=== PATIENT | male | born 1965 | race Caucasian/White ===

== ENCOUNTER 2018-04-17 20:49 | Emergency (ER) | payer MEDICARE, OTHER ==
[2018-04-17] MEDS ORDERED: IPRATROPIUM/ALBUTEROL SULFATE 3 ML SOLUTION IH ONE (21:22)
[2018-04-17 21:27] LABS: BASOPHILS % (AUTO) 0.7 % (0.0-5.0); EOSINOPHILS % (AUTO) 0.7 % (0.0-8.0); HEMATOCRIT 44.1 % (42-54); LYMPHOCYTES % (AUTO) 29.7 % (21.0-51.0); MEAN CORPUSCULAR HEMOGLOBIN 30.7 pg (27.0-33.0); MEAN CORPUSCULAR HGB CONC 33.5 g/dL (32.0-36.0); MEAN CORPUSCULAR VOLUME 91.5 fL (79-99); MONOCYTES % (AUTO) 4.9 % (3.0-13.0); PLATELET COUNT (AUTO) 319 K/uL (130-400); RED BLOOD CELL COUNT(AUTO) 4.82 MIL/uL (4.50-6.20); RED CELL DISTRIBUTION WIDTH 14.4 % (11.0-15.5); WHITE BLOOD COUNT (AUTO) 9.3 K/uL (4.8-10.8)
[2018-04-17 21:40] LABS: CREATININE 1.1 mg/dL (0.5-1.5); POTASSIUM 3.7 mmol/L (3.5-5.1)
[2018-04-17 21:42] LABS: INR 0.98 (0.85-1.15); PARTIAL THROMBOPLASTIN TIME 26.1 SEC (26.3-35.5); PROTHROMBIN TIME 10.3 SEC (9.6-11.6)
[2018-04-17 21:45] LABS: ALBUMIN 3.6 g/dL (3.5-5.0); BILIRUBIN,TOTAL 0.2 mg/dL (0.2-1.0); TOTAL PROTEIN, SERUM 7.5 g/dL (6.0-8.3)
[2018-04-17] MEDS ORDERED: KETOROLAC TROMETHAMINE 30MG/ML ONE (22:05)
== END 2018-04-17 22:47 | disposition home or self-care (01) ==
LOC: EDH 20:49
DX: B34.9 Viral infection, unspecified (principal); M41.9 Scoliosis, unspecified; T78.40XA Allergy, unspecified, initial encounter; I25.2 Old myocardial infarction; I50.9 Heart failure, unspecified; E78.5 Hyperlipidemia, unspecified; I25.10 Atherosclerotic heart disease of native coronary artery without angina pectoris; F31.9 Bipolar disorder, unspecified; Z72.0 Tobacco use; X58.XXXA Exposure to other specified factors, initial encounter
CPT/HCPCS: 36415; 71045; 80053; 82550; 84484; 85025; 85610; 85730; 93005; 94640; 96372; 99285; J1885

== ENCOUNTER → 2021-02-16 | Outpatient (CLI) | payer MEDICARE | END | disposition home or self-care (01) | LOC: SHCH 14:05 | PROVIDERS: ATTEND Internal Medicine Cardiovascular Disease | DX: I34.0 Nonrheumatic mitral (valve) insufficiency (principal); I50.22 Chronic systolic (congestive) heart failure | CPT/HCPCS: 93306; 93356 ==

== ENCOUNTER 2022-03-01 09:52 | Observation (INO) | payer OTHER ==
[2022-02-26 12:28] LABS: BASOPHILS % (AUTO) 0.7 % (0.0-5.0); EOSINOPHILS % (AUTO) 6.3 % (0.0-8.0); HEMATOCRIT 38.3 % (42-54); LYMPHOCYTES % (AUTO) 26.8 % (21.0-51.0); MEAN CORPUSCULAR HEMOGLOBIN 29.6 pg (27.0-33.0); MEAN CORPUSCULAR HGB CONC 32.6 g/dL (32.0-36.0); MEAN CORPUSCULAR VOLUME 90.8 fL (79-99); MONOCYTES % (AUTO) 8.4 % (3.0-13.0); NEUTROPHILS % (AUTO) 57.5 % (40.0-77.0); PLATELET COUNT (AUTO) 468 K/uL (130-400); RED BLOOD CELL COUNT(AUTO) 4.22 MIL/uL (4.50-6.20); RED CELL DISTRIBUTION WIDTH 14.4 % (11.0-15.5); WHITE BLOOD COUNT (AUTO) 9.1 K/uL (4.8-10.8)
[2022-02-26 12:42] LABS: INR 0.93 (0.85-1.15)
[2022-02-26 12:44] LABS: PARTIAL THROMBOPLASTIN TIME 26.2 SEC (26.3-35.5)
[2022-02-26 12:48] LABS: ALBUMIN 3.5 g/dL (3.5-5.0); POTASSIUM 4.2 mmol/L (3.5-5.1); TOTAL PROTEIN, SERUM 7.5 g/dL (6.0-8.3)
[2022-02-28 09:04] VITALS: BP 119/57
[~2022-03-01] VITALS: Ht 167.6 cm; Wt 43.9 kg
[~2022-03-01 09:52] MED LIST: BACL10TA PO; CALC-1125 PO; CEFAZOLIN SODIUM 1 GM VIAL IVP SCH; ESCI-8 PO; FENT-77 TD; FURO40TA5 PO; GABA600T10 PO; ISOS30TA92 PO; LORA0.5T83 PO; MORP30TA71 PO; MVIT PO; OMEG-148 PO
[2022-03-01 10:16] VITALS: BP 100/57
[2022-03-01] MEDS ORDERED: LIDOCAINE HCL 1% 20 ML VIAL ONE (12:20)
[2022-03-01] MEDS ORDERED: LIDOCAINE HCL 1% 10 ML VIAL ONE (12:21)
[2022-03-01] MEDS ORDERED: MEPERIDINE-PF 25 MG/ML SYG ONE (12:21)
[2022-03-01] MEDS ORDERED: MIDAZOLAM HCL 1 MG/ML 2ML VIAL ONE ×10 (12:21→15:35)
[2022-03-01] MEDS ORDERED: BUPIVACAINE/PF 0.25% 30ML VIAL IJ ONE (12:21)
[2022-03-01] MEDS ORDERED: MEPERIDINE-PF 50 MG/ML SYG ONE ×5 (13:26→15:33)
[2022-03-01] MEDS ORDERED: DiphenhydrAMINE HCL 50 MG/ML VIAL ONE (13:29)
[2022-03-01] MEDS ORDERED: IOHEXOL-350 50ML VIAL IV ONE (14:56)
[2022-03-01] MEDS ORDERED: BACITRACIN 1 EACH PACKET TP ONE (15:40)
[2022-03-01] MEDS ORDERED: ACETAMINOPHEN WITH CODEINE 1 TAB TAB PO PRN (16:30)
[2022-03-01] MEDS ORDERED: LORAZEPAM 0.5 MG TABLET PO PRN ×2 (16:30→20:00)
[2022-03-01] MEDS ORDERED: NON-FORMULARY MEDICATION 1 EACH (Fentanyl 1 EACH) TD SCH (16:30)
[2022-03-01] MEDS ORDERED: PHARMACY COMMUNICATION MISC SCH (17:00)
[2022-03-01] MEDS ORDERED: MORPHINE 15MG IR TAB PO PRN (17:00)
[2022-03-01 18:39] VITALS: BP 136/75
[2022-03-01 19:55] VITALS: BP 130/69
[2022-03-01] MEDS: GABAPENTIN 300 MG CAPSULE PO SCH ×2 (20:41→20:50)
[2022-03-01] MEDS: BACLOFEN 10 MG TABLET PO SCH ×2 (20:42→20:50)
[2022-03-01] MEDS ORDERED: FENTANYL 100 MCG/HR PATCH TD SCH (21:00)
[2022-03-01] MEDS ORDERED: NON-FORMULARY MEDICATION 1 EACH (Gabapentin 600 MG) PO SCH (21:00)
[2022-03-02 00:16] VITALS: BP 113/69
[2022-03-02 04:00] VITALS: BP 108/60
[2022-03-02 07:36] VITALS: BP 130/62
[2022-03-02] MEDS: BACLOFEN 10 MG TABLET PO SCH (09:00)
[2022-03-02] MEDS ORDERED: ISOSORBIDE MONO 30MG SR TAB PO SCH (09:00)
[2022-03-02] MEDS ORDERED: CALCIUM CARB 500MG PO SCH (09:00)
[2022-03-02] MEDS ORDERED: Escitalopram Oxalate 10 MG PO SCH (09:00)
[2022-03-02] MEDS ORDERED: FENTANYL 100 MCG/HR PATCH TD SCH (09:00)
[2022-03-02] MEDS ORDERED: FUROSEMIDE 40 MG TABLET PO SCH (09:00)
[2022-03-02] MEDS: GABAPENTIN 300 MG CAPSULE PO SCH (09:00)
[2022-03-02] MEDS ORDERED: MULTIVITAMIN TABLET PO SCH (09:00)
[2022-03-02] MEDS ORDERED: FISH OIL 1000 MG/CAP PO SCH (09:00)
== END 2022-03-02 12:30 | disposition home or self-care (01) ==
LOC: DAH 09:52 → DAHIP 09:53 → 2DH 16:37
PROVIDERS: ADMIT Internal Medicine; ATTEND Internal Medicine
DX: I25.5 Ischemic cardiomyopathy (principal); Z20.822 Contact with and (suspected) exposure to COVID-19; Z45.02 Encounter for adjustment and management of automatic implantable cardiac defibrillator; I11.0 Hypertensive heart disease with heart failure; I50.22 Chronic systolic (congestive) heart failure; I25.10 Atherosclerotic heart disease of native coronary artery without angina pectoris; F31.9 Bipolar disorder, unspecified; G89.4 Chronic pain syndrome; Z79.899 Other long term (current) drug therapy; Z98.890 Other specified postprocedural states; Z95.810 Presence of automatic (implantable) cardiac defibrillator; Z95.1 Presence of aortocoronary bypass graft; Z91.19 Patient's noncompliance with other medical treatment and regimen
CPT/HCPCS: 80053; 85025; 85610; 85730; 87426; 36415; 93640; 33249; 82948; 93005; 71045; C1769; C1721; C1895; G0378 ×20; J1200; J0690; J3490 ×2; J2250 ×10; J2175 ×6; Q9967; 99156; 99157

== ENCOUNTER 2022-07-30 17:03 | Emergency (ER) | payer MEDICARE, OTHER ==
[~2022-07-30] VITALS: Ht 167.6 cm; Wt 38.6 kg
[~2022-07-30 17:03] MED LIST changes: -CEFAZOLIN SODIUM 1 GM VIAL IVP SCH
[2022-07-30] MEDS ORDERED: ONDA4TAB10 PO (18:48)
[2022-07-30] MEDS ORDERED: MORPHINE 5 MG/ML VIAL (5MG OR GREATER DOSE) IM ONE (19:00)
[2022-07-30] MEDS ORDERED: ONDANSETRON ODT 4MG TAB SL ONE (19:00)
[2022-07-30 19:05] VITALS: BP 132/71
== END 2022-07-30 19:15 | disposition home or self-care (01) ==
LOC: EDH 17:03
DX: G89.29 Other chronic pain (principal); M54.50 Low back pain, unspecified; Z20.822 Contact with and (suspected) exposure to COVID-19; I10 Essential (primary) hypertension; Z79.899 Other long term (current) drug therapy
CPT/HCPCS: 99283; 87635; 87804 ×2; 96372; C9803; J2270

== ENCOUNTER 2022-08-27 03:23 | Emergency (ER) | payer OTHER ==
[~2022-08-27] VITALS: Ht 167.6 cm; Wt 45.4 kg
[~2022-08-27 03:23] MED LIST changes: +ONDA4TAB10 PO
[2022-08-27] MEDS ORDERED: MORPHINE 15MG SR TAB PO ONE (06:00)
[2022-08-27 06:11] LABS: BASOPHILS % (AUTO) 0.4 % (0.0-5.0); EOSINOPHILS % (AUTO) 0.9 % (0.0-8.0); HEMATOCRIT 41.3 % (42-54); LYMPHOCYTES % (AUTO) 24.6 % (21.0-51.0); MEAN CORPUSCULAR HEMOGLOBIN 29.5 pg (27.0-33.0); MEAN CORPUSCULAR HGB CONC 34.1 g/dL (32.0-36.0); MEAN CORPUSCULAR VOLUME 86.4 fL (79-99); MONOCYTES % (AUTO) 9.2 % (3.0-13.0); NEUTROPHILS % (AUTO) 64.5 % (40.0-77.0); PLATELET COUNT (AUTO) 438 K/uL (130-400); RED BLOOD CELL COUNT(AUTO) 4.78 MIL/uL (4.50-6.20); RED CELL DISTRIBUTION WIDTH 13.3 % (11.0-15.5); WHITE BLOOD COUNT (AUTO) 10.9 K/uL (4.8-10.8)
[2022-08-27 06:21] LABS: AMPHET/METH SCREEN,URINE NEGATIVE (NEGATIVE); BARBITURATE SCREEN, URINE NEGATIVE (NEGATIVE); BENZODIAZEPINES SCREEN,URINE NEGATIVE (NEGATIVE); CANNABINOID SCREEN,URINE POSITIVE (NEGATIVE); COCAINE SCREEN,URINE NEGATIVE (NEGATIVE); OPIATE SCREEN,URINE POSITIVE (NEGATIVE); PHENCYCLIDINE SCREEN,URINE NEGATIVE (NEGATIVE)
[2022-08-27 06:28] LABS: ALBUMIN 3.4 g/dL (3.5-5.0); POTASSIUM 3.5 mmol/L (3.5-5.1); TOTAL PROTEIN, SERUM 7.3 g/dL (6.0-8.3)
[2022-08-27 07:01] VITALS: BP 113/56
== END 2022-08-27 07:03 | disposition home or self-care (01) ==
LOC: EDH 03:23
DX: G89.29 Other chronic pain (principal); M54.9 Dorsalgia, unspecified; I10 Essential (primary) hypertension; Z79.899 Other long term (current) drug therapy; Z95.810 Presence of automatic (implantable) cardiac defibrillator
CPT/HCPCS: 36415; 80053; 80305; 85025

== ENCOUNTER → 2023-05-26 | Outpatient (CLI) | payer OTHER | END | disposition home or self-care (01) | LOC: SHCH 15:01 | PROVIDERS: ATTEND Internal Medicine Cardiovascular Disease | DX: I25.5 Ischemic cardiomyopathy (principal) | CPT/HCPCS: 93306 ==

== ENCOUNTER 2023-08-26 10:59 | Emergency (ER) | payer OTHER | END 2023-08-26 12:07 | disposition left against medical advice (07) | LOC: EDH 10:59 | DX: M54.50 Low back pain, unspecified (principal); M54.2 Cervicalgia; Z53.21 Procedure and treatment not carried out due to patient leaving prior to being seen by health care provider ==

== ENCOUNTER 2023-08-28 10:17 | Emergency (ER) | payer OTHER | END 2023-08-28 13:31 | disposition left against medical advice (07) | LOC: EDH 10:17 | DX: Z04.1 Encounter for examination and observation following transport accident (principal); Z53.21 Procedure and treatment not carried out due to patient leaving prior to being seen by health care provider ==

== ENCOUNTER 2023-09-05 05:16 | Emergency (ER) | payer OTHER ==
[~2023-09-05] VITALS: Ht 167.6 cm; Wt 59.0 kg
[2023-09-05 05:39] VITALS: O2SAT 99
[2023-09-05 06:22] VITALS: BP 108/52
[2023-09-05 06:40] VITALS: PULSE 99; RESP 18
[2023-09-05] MEDS: IPRATROPIUM/ALBUTEROL SULFATE 3 ML SOLUTION IH ONE (06:46)
[2023-09-05] MEDS ORDERED: CYCL10TA16 PO (08:20)
[2023-09-05] MEDS ORDERED: HYDR50CA50 PO (08:20)
[2023-09-05] MEDS ORDERED: ACETAMINOPHEN 500 MG TABLET PO ONE (08:30)
== END 2023-09-05 08:23 | disposition left against medical advice (07) ==
LOC: EDH 05:16
DX: G89.29 Other chronic pain (principal); M54.9 Dorsalgia, unspecified
CPT/HCPCS: 72072; 72100; 72190; 94640

== ENCOUNTER 2023-11-04 08:35 | Emergency (ER) | payer MEDICARE ==
[~2023-11-04] VITALS: Ht 175.3 cm; Wt 68.0 kg
[~2023-11-04 08:35] MED LIST changes: +ACET-66 PO; +BUSP10TA3 PO; -CALC-1125 PO; +CYCL-309 PO; -FENT-77 TD; -FURO40TA5 PO; +GABA300C PO; -GABA600T10 PO; +GUAI400T94 PO; +HALO1TAB PO; +HYDR50CA50 PO; -ISOS30TA92 PO; -LORA0.5T83 PO; +MAGN250T10 PO; +MELO-108 PO; -MORP30TA71 PO; -MVIT PO; +NICO-704 TD; +OLAN5TAB76 PO; -OMEG-148 PO; -ONDA4TAB10 PO; +PRED20TA3 PO
[2023-11-04] MEDS: HYDROCODONE/ACETAMINOPHEN 5/325 MG TAB PO ONE (10:34)
[2023-11-04 11:57] VITALS: BP 133/85; PULSE 78; RESP 18; O2SAT 98
== END 2023-11-04 12:02 | disposition home or self-care (01) ==
LOC: EDH 08:35
DX: M79.662 Pain in left lower leg (principal); I10 Essential (primary) hypertension; E11.9 Type 2 diabetes mellitus without complications; F41.9 Anxiety disorder, unspecified; K21.9 Gastro-esophageal reflux disease without esophagitis; Z79.899 Other long term (current) drug therapy; Z98.890 Other specified postprocedural states